=== PATIENT | male | born 1960 | race Caucasian/White ===

== ENCOUNTER 2023-02-12 00:54 | Emergency (ER) | payer BC, MEDICAID ==
[~2023-02-12] VITALS: Ht 170.2 cm; Wt 95.3 kg
[~2023-02-12 00:54] MED LIST: ASPI-1155 PO; LOVA10TA55 PO; UNK BP MED
[2023-02-12 00:55] VITALS: BP_SYST 129; PULSE 102; RESP 19; TEMP 98.5; O2SAT 96
[2023-02-12] MEDS ORDERED: LIDOCAINE 1% 10 MG/ML, 20 ML MDV SUBCUT ONE (01:30)
[2023-02-12] MEDS ORDERED: IBUP-1971 PO (01:44)
[2023-02-12] MEDS ORDERED: CEPH-548 PO (01:44)
[2023-02-12 02:00] VITALS: BP_SYST 130; PULSE 104; RESP 17; O2SAT 95
== END 2023-02-12 02:00 | disposition home or self-care (01) ==
LOC: SED 00:54
DX: L02.416 Cutaneous abscess of left lower limb (principal); M79.652 Pain in left thigh; E11.9 Type 2 diabetes mellitus without complications; I10 Essential (primary) hypertension; Z79.899 Other long term (current) drug therapy
CPT/HCPCS: 99283

== ENCOUNTER 2023-02-16 21:37 | Emergency (ER) | payer MEDICAID ==
[~2023-02-16] VITALS: Ht 170.2 cm; Wt 113.4 kg
[~2023-02-16 21:37] MED LIST changes: +CEPH-548 PO; +IBUP-1971 PO
[2023-02-16 22:23] VITALS: BP_SYST 123; PULSE 86; RESP 19; TEMP 97.9; O2SAT 97
--- NOTE | 2023-02-16 22:28 | NUR ---
LEFT UPPER THIGH ABSCESS/WOUND CHECK, AREA IS PACKED, TAKING KEFLEX
--- NOTE | 2023-02-16 22:40 | NUR ---
Patient to ER bed 07 to gown for evaluation. Side rails up.
--- NOTE | 2023-02-16 23:01 | NUR ---
PT BIB C/O ABRASION LEFT UPPER INNER THIGH. PT DENIES PAIN OR FEVER. PT HAS A HX OF HTN, CHOLESTROL, AND DM. WOUND HAS NO DRAINAGE OR SMELL. PT IS GCS 15 EYES OPEN SPONTANEOUSLY. PT IS ALERT AND ORIENTED TO PERSON, PLACE, TIME, AND SITUATION. PT OBEYS COMMANDS. PT DENIES AUDITORY OR VISUAL ISSUES. PT DENIES SOB AND CHEST PAIN. PT IS AFEBRIL. PT IS ON THE MONITOR WITH AT BEDSIDE.
--- NOTE | 2023-02-16 23:02 | NUR ---
ER at bedside examining patient.
--- NOTE | 2023-02-16 23:27 | NUR ---
Patient given written and verbal discharge instructions and verbalizes understanding. ER MD discussed with patient the results and treatment provided. Patient in stable condition. ID arm band removed. Patient educated on pain management AND INFECTION and to follow up with PMD. Pain Scale 0 OUT OF 10. Opportunity for questions provided and answered. Medication side effect fact sheet provided.
[2023-02-16 23:29] VITALS: BP_SYST 123; PULSE 86; RESP 19; TEMP 98.1; O2SAT 97
== END 2023-02-16 23:29 | disposition home or self-care (01) ==
LOC: SED 21:37
DX: Z48.00 Encounter for change or removal of nonsurgical wound dressing (principal); E11.9 Type 2 diabetes mellitus without complications; I10 Essential (primary) hypertension; Z79.899 Other long term (current) drug therapy
CPT/HCPCS: 99281